=== PATIENT | female | born 1990 | race Caucasian/White ===

== ENCOUNTER → 2020-03-22 08:18 | Outpatient (BNVA) | payer MEDICAID, SELFPAY | PROVIDERS: Visit Provider Physician Assistant ==

== ENCOUNTER → 2020-03-28 14:37 | Outpatient (BNVA) | payer MEDICAID, SELFPAY | PROVIDERS: Visit Provider Dietitian, Registered ==

== ENCOUNTER 2020-03-30 09:03 | Outpatient (REF) | payer MEDICAID, SELFPAY ==
[2020-03-30 09:55] LABS: MANUAL DIFF FLAG NO
[2020-03-30 10:02] LABS: Basophils Absolute Auto 0.1 X10*3/uL (0.0-0.2); Basophils Percent Auto 0.5 % (0-2); Eosinophils Absolute Auto 0.2 X10*3/uL (0.0-0.4); Eosinophils Percent Auto 1.6 % (0-4); Hematocrit 38.3 % (37-47); Hemoglobin 12.7 g/dl (12.0-16.0); Imm Gran Abs Auto 0.06 X10*3/uL (0.00-0.03); Imm Gran Pct Auto 0.5 % (0.0-0.4); Lymphocytes Percent Auto 24.5 % (20-40); Mean Corpuscular HGB Conc 33.2 g/dl (31.0-35.0); Mean Corpuscular Hemoglobin 30.5 pg (27.0-33.0); Mean Corpuscular Volume 92.1 fL (80-98); Mean Platelet Volume 10.9 fL (9.4-12.3); Monocytes Absolute Auto 0.7 X10*3/uL (0.1-1.2); Neutrophils Absolute Auto 8.1 X10*3/uL (2.0-8.3); Neutrophils Percent Auto 66.9 % (45-73); Platelet Count 275 X10*3/uL (160-400); Red Blood Count 4.16 X10*6/uL (4.20-5.50); Red Cell Distribution Width 12.9 % (11.0-16.0); White Blood Count 12.2 X10*3/uL (4.8-10.8)
[2020-03-30 10:32] LABS: Estimated Average Glucose 94 mg/dL; Hemoglobin A1C 141.2281 umol/L; Hemoglobin A1c % 4.9 %
[2020-03-30 10:41] LABS: Alanine Aminotransferase 17 U/L (0-31); Albumin Level 3.9 g/dL (3.5-5.0); Alkaline Phosphatase 47 U/L (39-117); Anion Gap 12 (12-20); Aspartate Amino Transferase 16 U/L (5-31); Bilirubin Total 1.2 mg/dL (0.0-1.0); Blood Urea Nitrogen 7 mg/dL (9-16); C Reactive Protein 0.92 mg/dL (< or = 0.50); Calcium 9.1 mg/dL (8.4-10.2); Carbon Dioxide 26 mmol/L (22-29); Chloride 104 mmol/L (96-108); Cholesterol 188 mg/dL; Estimated Glomerular Filt Rate > 60; Glucose Fasting 85 mg/dL (60-99); HDL Cholesterol 60 mg/dL; Iron 153 mcg/dL (30-160); LDL Cholesterol Calculated 103 mg/dl; Percent Iron Saturation 48 % (15-50); Potassium 4.4 mmol/l (3.3-5.1); Sodium 138 mmol/L (135-145); Total Iron Binding Capacity 319 mcg/dL (228-428); Total Protein 6.6 g/dL (6.5-8.0); Triglycerides 125 mg/dL; Unsaturated Iron Binding 166 ug/dL
[2020-03-30 11:00] LABS: Folate 19.4 ng/mL (> or = 4.0); Vitamin B12 848 pg/mL (200-900)
[2020-03-30 11:02] LABS: Ferritin 109 ng/mL (10-122); Vitamin D 25-OH Total 47.3 ng/mL (>30)
[2020-03-31 06:12] LABS: Insulin Level Total 3.7 uIU/mL
[2020-03-31 15:42] LABS: Calcium (PTHI) 9.1 mg/dL (8.6-10.2); PTHI 13 pg/mL (14-64)
[2020-04-03 00:27] LABS: Zinc 75 mcg/dL (60-130)
[2020-04-04 12:27] LABS: Vitamin B1 15 nmol/L (8-30)
[2020-04-06 09:57] LABS: Vitamin A 47 mcg/dL (38-98)
== END 2020-03-30 09:04 | disposition home or self-care (01) ==
LOC: HO.LAB 09:03
PROVIDERS: Visit Provider Physician Assistant
DX: O99.840 Bariatric surgery status complicating pregnancy, unspecified trimester (principal); O99.210 Obesity complicating pregnancy, unspecified trimester; E66.01 Morbid (severe) obesity due to excess calories; O26.899 Other specified pregnancy related conditions, unspecified trimester; K91.2 Postsurgical malabsorption, not elsewhere classified; Z90.3 Acquired absence of stomach [part of]; Z3A.00 Weeks of gestation of pregnancy not specified
CPT/HCPCS: 36415; 80053; 80061; 82306; 82607; 82728; 82746; 83036; 83525; 83540; 83970; 84425; 84443; 84590; 84630; 85025; 86140

== ENCOUNTER → 2020-05-02 08:11 | Outpatient (BNVA) | payer MEDICAID, SELFPAY | PROVIDERS: Visit Provider Dietitian, Registered ==

== ENCOUNTER → 2020-05-22 10:09 | Outpatient (BNVA) | payer MEDICAID, SELFPAY | PROVIDERS: Visit Provider Surgery | DX: E66.3 Overweight (principal); Z98.84 Bariatric surgery status; Z3A.14 14 weeks gestation of pregnancy | CPT/HCPCS: 99212 ==

== ENCOUNTER → 2020-06-27 08:12 | Outpatient (BNVA) | payer MEDICAID, SELFPAY | PROVIDERS: Visit Provider Dietitian, Registered ==

== ENCOUNTER → 2020-07-26 08:15 | Outpatient (BNVA) | payer MEDICAID, SELFPAY | PROVIDERS: Visit Provider Dietitian, Registered | DX: Z98.84 Bariatric surgery status (principal) | CPT/HCPCS: 97803 ==

== ENCOUNTER 2024-08-30 11:39 | Outpatient (AMB) | payer MEDICAID, SELFPAY ==
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
[2024-08-30 11:50] VITALS: BMI 32.9
--- OUTSIDE RECORDS SUMMARY | 2024-08-30 12:31 | XMS_ITS | Clinical Summary ---
Author Organization [email or web address] Address [address] [place] [address] Care Team Providers Care Transportation Mechanic Name Role Phone Unavailable Primary Care Provider Unavailabl e Allergies Active Allergy Reactions Criticality Noted Date Comments Dust Mite Extract Cough,Dermatitis,Hiv e s,Itching,Rash,Shortn ess of breath High 07/06/2024 Fish-Derived Products Anaphylaxis,Dermat iti s,Diarrhea,Hives,Itch ing,Shortness of breath,Swelling High 09/12/2022 Other Reaction(s): Throat Tightness Nsaids 07/06/2024 [place] Oil Hives,Shortness of breath,Swelling High 09/12/2022 Other Reaction(s): Throat Tightness Raspberry Hives,Shortness of breath High 09/12/2022 Medications Ventolin HFA 108 (90 Base) MCG/ACT inhaler INHALE ONE TO TWO PUFFS BY MOUTH EVERY 4 TO 6 HOURS NEEDED Active doxycycline (Vibra-Tabs) 100 MG tablet 4 Active Ferrous Sulfate (IRON PO) 8 Active oxyCODONE (Roxicodone) 5 MG immediate release tablet 4 Active Sertraline HCl 150 MG capsule Take 150 mg by mouth. 5 Active traMADol (Ultram) 50 MG tablet TAKE 1 TABLET BY MOUTH EVERY 8 HOURS NEEDED FOR LOW BACK PAIN. DO NOT FILL UNTIL 07/15/2024 5 Active venlafaxine XR (Effexor XR) 75 MG 24 hr capsule Take 75 mg by mouth Once per day. Active ARIPiprazole (Abilify) 10 MG tablet 5 Active hydrOXYzine HCl (Atarax) 50 MG tablet 5 Active traZODone (Desyrel) 50 MG tablet Take 50 mg by mouth at bedtime. Active cloNIDine (Catapres) 0.1 MG tablet Take 0.1 mg by mouth 2 times daily. Active naratriptan (Amerge) 2.5 MG tablet PLEASE SEE ATTACHED FOR DETAILED DIRECTIONS Active amoxicillin-cla vulanate (Augmentin) 875-125 MG tabletIndicatio ns:Dental caries Take 1 tablet by mouth 2 times daily for 10 days. 20 tablet 5 09/04/19 25 Active acetaminophen-c odeine (Tylenol w/ Codeine #3) 300-30 MG tabletIndicatio ns:Dental caries Take 1 tablet by mouth every 6 (six) hours if needed for severe pain for up to 5 days. 20 tablet 5 08/30/19 25 Active Problems Problem Noted Date Diagnosed Date Abnormal cervical Papanicolaou smear 07/06/2024 Overview (07/06/2024): 2019 nilm lgsil pap 2011 ADD (attention deficit disorder) 07/06/2024 Anxiety 07/06/2024 Asthma 07/06/2024 Overview (07/06/2024): prn albuterol, stable. improved in adulthood, allergy induced. Chronic dental pain 07/06/2024 PTSD (post-traumatic stress disorder) 07/06/2024 CTE (chronic traumatic encephalopathy) Depressive disorder 07/06/2024 Overview (07/06/2024): no medications, feeling well. therapy and meds not helpful per pt. Lower back pain 07/06/2024 Migraines 07/06/2024 Overview (07/06/2024): intermittent, tylenol and rest. not frequent enough for daily med management. CRISTIANE (generalized anxiety disorder) 04/28/2024 Depression 04/28/2024 Intestinal malabsorption following gastrectomy 0 10/25/2022 Overweight with body mass in dex (BMI) of 28 to 28.9 in adult 10/25/2022 Smoker 10/25/2022 Status post sleeve gastrectomy 10/25/2022 Complex posttraumatic stress disorder 01/31/2014 Resolved Problems Problem Noted Date Diagnosed Date Resolved Date Anemia 09/15/2023 09/15/2023 Encounters Date Type Department Care Team Description 08/24/2024 11:00 AM EDT Office Visit [facility]ENT D[facility]AL [address] [place] [address] Jesica Palafox, LLTrinh Dental caries (Primary Dx) 08/23/2024 9:00 AM EDT Community Care Management [facility] OM CHW [phone] Tori Brewer 08/10/2024 2:30 PM EDT Office Visit [facility] GR DENTAL [address] [place] [address] Kathryn Tabares LLD 08/09/2024 Travel 08/05/2024 Telephone [facility] GR DENTAL [address] [place] [phone] Kathryn Tabares LLD 06/29/2024 Travel 06/02/2024 10:00 AM EDT Office Visit [facility] OD DENTAL [address] [facility] [phone] Broderick Yen 06/01/2024 Travel from Last 3 Months Family History Medical History Relation Name Comments Asthma Daughter Otf Intellectual Disability Daughter Otf Learning disabilities Daughter Otf Heart disease Father Clarence Hypertension Father Clarence Diabetes Maternal Grandfather Jed Heart disease Maternal Grandfather Jed Depression Maternal Grandmother Katharina Diabetes Maternal Grandmother Katharina Kidney disease Maternal Grandmother Katharina Mental illness Maternal Grandmother Katharina Arthritis Mother Peggy Asthma Mother Peggy Cancer Mother Peggy Miscarriages / Stillbirths Mother Peggy Early natural Mother's Brother Ramiro Intellectual Disability Mother's Brother Ramiro Learning disabilities Mother's Brother Ramiro Hearing loss Paternal Grandfather Gene Heart disease Paternal Grandmother Yasmin Stroke Paternal Grandmother Yasmni Vision loss Paternal Grandmother Yasmin Asthma Sister Melinda Asthma Son 1 Mitch defects Son 1 Mitch Intellectual Disability Son 1 Mitch Learning disabilities Son 1 Mitch Asthma Son 2 Boom Intellectual Disability Son 2 Boom Learning disabilities Son 2 Boom Relation Name Status Comments Daughter Otf Alive Father Clarence Alive Maternal Grandfather Jed Alive Maternal Grandmother Katharina Alive Mother Peggy Alive Mother's Brother Ramiro Alive Paternal Grandfather Rasheed Alive Paternal Grandmother Yasmin Alive Sister Melinda Alive Son 1 Mitch Alive Son 2 Boom Alive Social History Tobacco Use Types Packs/Day Years Used Date Smoking Tobacco: Every Day Cigarettes Smokeless Tobacco: Never Tobacco Cessation:Ready to Q uit: Not Asked; Counseling Given: Not Answered Alcohol Use Standard Drinks/Week Comments Never 0 (1 standard drink = 0.6 oz pur e alcohol) Comments Unknown Sex and Gender Information Value Date Recorded Sex Assigned at Female 09/15/2023 10:19 AM EDT Legal Sex Female 10:01 AM EDT Gender Identity Female 09/15/2023 10:19 AM EDT Sexual Orientation Choose not to disclose 2023 10:19 AM EDT Last Filed Vital Signs Vital Sign Reading Time Taken Comments Blood Pressure 120/89 08/24/2024 11:10 AM EDT Pulse 73 08/24/2024 11:10 AM EDT Temperature 36.8 C (98.3 F) 08/24/2024 11:10 AM EDT Respiratory Rate - - Oxygen Saturation - - Inhaled Oxygen Concentration - - Weight - - Height - - Body Mass Index - - Plan of Treatment Upcoming Encounters Date Type Department Care Team (Late st Contact Info) Description 09/13/2024 12:30 PM EDT Office Visit [facility] GR DENTAL [address] [place] [phone] Kathryn Tabares D [address] [place] [address] Health Maintenance Due Date Last Done Comments Dental Prophylaxis 1988 Depression Screening 1988 HIV Screening 1988 Lipid Panel 1988 SDOH Screening 1988 Disability Screening 1988 Alcohol/Substance Use Screening 2000 Family Planning (PISQ) 12/28/2003 Hepatitis C Screening 2006 Hepatitis B Vaccines (1 of 3 - 19+ 3-dose series) 12/28/2007 Pneumococcal Vaccine: Pediatrics (0 to 5 Years) and At-Risk Patients (6 to 49) Years (1 of 2 - PCV) 12/28/2007 Pap Smear 2009 Cervical Cancer Screening 2018 HPV/Cotest 2018 COVID-19 Vaccine ( season) 2023 04/24/2022, 03/07/2021, 03/07/2020 Dental Oral Exam 02/10/2025 08/10/2024 Dental X-Ray: Bitewings 06/03/2025 06/02/2024 Tobacco Screening 08/24/2025 08/24/2024 Dental X-Ray: Full Mouth 06/04/2027 06/02/2024, 0707/2023 DTaP/Tdap/Td Vaccines (2 - Td or Tdap) 08/09/2032 08/09/2022, 10/20/2012, 10/20/2012 Zoster Vaccines (1 of 2) 2038 RSV Patients and Patients Aged 60 years or older (1 - 1-dose 75+ series) 12/28/2063 Influenza Vaccine Completed 04/25/2024, , 01/27/2018, Additional history exists HIB Vaccines Aged Out No longer eligi ble based on patient's age to complete this topic HPV Vaccines Aged Out No longer eligi ble based on patient's age to complete this topic Hepatitis A Vaccines Aged Out No long er eligible based on patient's age to complete this topic IPV Vaccines Aged Out No longer eligi ble based on patient's age to complete this topic Meningococcal B Vaccine Aged Out No l onger eligible based on patient's age to complete this topic Meningococcal Vaccine Aged Out No emanuel madhuri eligible based on patient's age to complete this topic RSV under 20 months Aged Out No longe r eligible based on patient's age to complete this topic Rotavirus Vaccines Aged Out No longer eligible based on patient's age to complete this topic Procedures Procedure Name Priority Date/Time Associated Diagnosis Comments LIMITED ORAL EVALUATION - PROBLEM FOCUSED Routine 08/24/2024 11:00 AM EDT CASE PRESENTATION, DETAILED AND EXTENSIVE TREATMENT PLANNING Routine 08/24/2024 11:00 AM EDT COMPREHENSIVE ORAL EVALUATION - NEW OR ESTABLISHED PATIENT Routine 08/10/2024 2:30 PM EDT CASE PRESENTATION, DETAILED AND EXTENSIVE TREATMENT PLANNING Routine 08/10/2024 2:30 PM EDT INTRAORAL - COMPLETE SERIES OF RADIOGRAPHIC IMAGES Routine 06/02/2024 10:00 AM EDT ORAL HYGIENE INSTRUCTIONS Routine 2024 10:00 AM EDT from Last 3 Months Insurance [facility] MEDICAID STAND ADULT DENTAL - [facility] FULL (MEDICAID)
== END 2024-08-30 12:09 | disposition home or self-care (01) ==
LOC: HO.HBS 11:39
PROVIDERS: PCP Family Medicine; Visit Provider Physician Assistant Surgical
DX: E66.9 Obesity, unspecified (principal); Z68.32 Body mass index [BMI] 32.0-32.9, adult; Z90.3 Acquired absence of stomach [part of]; Z98.84 Bariatric surgery status
CPT/HCPCS: 98014

== ENCOUNTER 2024-09-14 08:13 | Outpatient (REF) | payer MEDICAID, SELFPAY ==
--- OUTSIDE RECORDS SUMMARY | 2024-09-14 08:19 | XMS_ITS | Encounter Summary ---
Author Organization [employer] Address [address] [place] [address] [address] [address] Care Team Providers Care Dispenser Operator Name Role Phone Unavailable Primary Care Provider Unavailabl e Reason for Visit * Reason Comments Med Refill Encounter Details Date Type Department Care Team (Late Contact Info) Description 10/07/2023 Refill [facility]RGENT DENTAL [address] [place] [phone] Jesica Palafox Trinh [address] [place] [phone] Social History Tobacco Use Types Packs/Day Years Used Date Smoking Tobacco: Every Day Cigarettes Smokeless Tobacco: Never Alcohol Use Standard Drinks/Week Comments Never 0 (1 standard drink = 0.6 oz pur e alcohol) Comments Unknown Sex and Gender Information Value Date Recorded Sex Assigned at Female 09/15/2023 10:19 AM EDT Legal Sex Female 10:01 AM EDT Gender Identity Female 09/15/2023 10:19 AM EDT Sexual Orientation Choose not to disclose 2023 10:19 AM EDT documented as of this encounter Plan of Treatment Upcoming Encounters Date Type Department Care Team (Late Contact Info) Description 10/25/2024 12:30 PM EDT Office Visit [facility]RGENT DENTAL [address] [place] [phone] Jesica Palafox [facility] [address] [place] [address] 10/25/2024 4:15 PM EDT Office Visit [facility] GR DENTAL [address] [place] [phone] Kathryn Tabares Trinh [address] [place] [phone] documented as of this encounter Visit Diagnoses Not on filedocumented in this encounter
[2024-09-14 08:42] LABS: MANUAL DIFF FLAG NO
[2024-09-14 09:14] LABS: Hematocrit 41.8 % (37.0-47.0); Hemoglobin 13.8 g/dl (12.0-16.0); Imm Gran Abs Auto 0.03 X10*3/uL (0.00-0.03); Imm Gran Pct Auto 0.3 % (0.0-0.4); Lymphocytes Absolute Auto 3.1 X10*3/uL (1.2-4.9); Mean Corpuscular HGB Conc 33.0 g/dl (31.0-35.0); Mean Corpuscular Hemoglobin 28.9 pg (27.0-33.0); Mean Corpuscular Volume 87.4 fL (80.0-98.0); NRBC Abs Auto 0.000 X10*3/uL (0.0-0.012); NRBC Pct Auto 0.0 /100WBC (0.0-0.2); Platelet Count 293 X10*3/uL (160-400); Red Blood Count 4.78 X10*6/uL (4.20-5.50); White Blood Count 9.3 X10*3/uL (4.8-10.8)
[2024-09-14 09:15] LABS: Hemoglobin A1C 121.6894 umol/L; Total Hemoglobin (HGBA1C) 3747.2576 umol/L
[2024-09-14 09:49] LABS: Alanine Aminotransferase 20 U/L (0-31); Albumin Level 4.5 g/dL (3.5-5.0); Alkaline Phosphatase 61 U/L (39-117); Anion Gap 9 (12-20); Aspartate Amino Transferase 26 U/L (5-31); Blood Urea Nitrogen 17 mg/dL (9-16); Calcium 9.6 mg/dL (8.4-10.2); Carbon Dioxide 28 mmol/L (22-29); Chloride 108 mmol/L (96-108); Cholesterol 196 mg/dL (<200); Estimated Glomerular Filt Rate > 60; HDL Cholesterol 63 mg/dL (>40); Iron 63 mcg/dL (30-160); Percent Iron Saturation 20 % (15-50); Potassium 4.1 mmol/L (3.3-5.1); Sodium 141 mmol/L (135-145); Total Iron Binding Capacity 317 mcg/dL (228-428); Total Protein 8.0 g/dL (6.5-8.0); Triglycerides 86 mg/dL (<150); Unsaturated Iron Binding 254 ug/dL
[2024-09-14 10:10] LABS: Folate 11.6 ng/mL (> or = 4.0); Vitamin B12 1035 pg/mL (200-900)
[2024-09-14 10:11] LABS: Ferritin 28 ng/mL (10-122)
== END 2024-09-14 08:14 | disposition home or self-care (01) ==
LOC: HO.LAB 08:13
PROVIDERS: Visit Provider Physician Assistant Surgical
DX: Z98.84 Bariatric surgery status (principal)
CPT/HCPCS: 36415; 80053; 80061; 82306; 82607; 82728; 82746; 83036; 83525; 83540; 84425; 84443; 84590; 84630; 85025; 86140

== ENCOUNTER 2024-09-30 08:53 | Outpatient (AMB) | payer MEDICAID, SELFPAY ==
--- NOTE | 2024-09-30 08:56 | MHC.OFFVISWM ---
VS Expanded 09/30/24 09:04 BP 137/80 Blood Pressure Location Rt brachial Blood Pressure Position Sitting Pulse 79 Pulse Source Pulse Oximeter Temp 96.6 F L Temperature Source Temporal Artery Scan Pulse Oximetry 100 Oxygen Delivery Method Room Air Height 5 ft 2.5 in Weight 177 lb BMI 31.9 Body Fat % 39.4 Body Fat Mass 69.6 Fat Free Mass 107.2 Visceral Fat Rating 8.0 Body Water % 43.4 Body Water Mass 76.8 Muscle Mass/Score 101.6 Basal Metabolic Rate/Score 1,499 Intake Visit Reasons: OV po lsg 07/29/18 Allergies [place] And Derivatives (CITRUS) Allergy (Intermediate, Verified 09/30/24 09:00) RASH/THROAT SWELLING raspberry (RASPBERRY) Allergy (Intermediate, Verified 09/30/24 09:00) RASH TUNA FISH Allergy (Severe, Uncoded 05/22/20 11:43) ANAPHYLAXIS DAIRY PRODUCTS Allergy (Intermediate, Uncoded 05/22/20 11:43) GI DISTRESS citrus Allergy (Unknown, Uncoded 05/22/20 11:43) rash throat swelling dairy Allergy (Unknown, Uncoded 05/22/20 11:43) GI problems Medication List - Last Reconciled 09/30/24 by ARIA Rodrigues albuterol sulfate 90 mcg/actuation (ProAir HFA) 1 inh inhalation QID aripiprazole (Abilify) 5 mg PO DAILY clonidine HCl 0.1 mg PO BID famotidine 20 mg PO DAILY ferrous sulfate ER 140 mg PO DAILY hydroxyzine HCl 50 mg PO QID PRN lidocaine 5% 1 patch topical DAILY methylphenidate HCl ER (Concerta) 18 mg PO DAILY qznyrbkstuvb-tae-wchu-FA-vit K 45 mg iron- 800 mcg-120 mcg (Bariatric Multivitamins) 1 cap PO .daily in evening naratriptan take 1 tab at onset of headache; if no relief may repeat 1 tab after at least 4 hrs; max = 2 tabs/24 hrs PO nicotine 1 patch transdermal DAILY sertraline 150 mg PO DAILY thiamine HCl (vitamin B1) 100 mg PO DAILY tirzepatide (Mounjaro) 2.5 mg (0.5 mL) subcut QWEEK tramadol 50 mg PO TID PRN trazodone 50 mg PO DAILY triamcinolone acetonide 0.1% 1 appl topical DAILY venlafaxine ER 75 mg PO DAILY HPI Comments Details: This?is a?33?yo F who is s/p LSG 07/29/2018. Presents for 6 year 2mo post op visit. Weight oss of 6lb since last OV No complaints of nausea, emesis, abdominal pain or reflux, or constipation. Attempted to retrieve previous imaging for pt but no RUQ US found, only CT pelvis from [facility] which does not comment on her liver. Present meal plan includes: following a plan from [employer] deon, trying to prioritize protein and veg Exercise routine includes: going to gym, low impact exercises- recumbent bike, rowing machine, resistance bands PFSH Medical History (Updated 09/30/24 @ 09:01 by Bobbi Manley CMA) Delivery with history of Asthma History of miscarriage History of ectopic Ectopic Anxiety Depression PTSD (post-traumatic stress disorder) Intestinal malabsorption following gastrectomy Surgical History Status post breast reduction S/P laparoscopic sleeve gastrectomy Family History Father HTN (hypertension) Heart murmur Mother Pre-diabetes Ovarian cancer HTN (hypertension) Sister Hypothyroidism Daughter Dania's thyroiditis Asthma Social History (Updated 09/30/24 @ 09:01 by Bobbi Manley CMA) Alcohol intake: never Patient Tobacco Use Status: Current someday Tobacco user Cigarettes Per Day: 3 Physical Exam Vital Signs: Last Vital Signs Temp 96.6 F L 09/30/24 09:04 Pulse 79 09/30/24 09:04 BP 137/80 09/30/24 09:04 Pulse Ox 100 09/30/24 09:04 Oxygen Delivery Method Room Air 09/30/24 09:04 BMI result Body Mass Index 31.9 Assessment & Plan Assessment & Plan (1) S/P laparoscopic sleeve gastrectomy: Code(s): Z98.84 - Bariatric surgery status Category: Surgical (2) Obesity: Code(s): E66.9 - Obesity, unspecified Category: Medical Plan Pt is interested in starting GLP1. Reviewed contraindications, discussed dosing. Discussed need for adequate protein intake while on GLP1s as well as frequent communication with our office. Pt will check in with me weekly and is aware that subsequent Rx will be dependent on frequent communication. Labs reviewed, vit B1 supplement sent, MVI rx per pt request. RTC 3mo. Medications: New thiamine HCl (vitamin B1) 100 mg PO DAILY 90 tabs 3RF tirzepatide (Mounjaro) for 4 weeks 2.5 mg (0.5 mL) subcut QWEEK 2 mL 0RF advvxewkiiwt-bwc-zemn-FA-vit K 45 mg iron- 800 mcg-120 mcg (Bariatric Multivitamins) 1 cap PO .daily in evening 90 caps 3RF
[2024-09-30 09:04] VITALS: BP 137/80; PULSE 79; TEMP 35.9; O2SAT 100; BMI 31.9
--- OUTSIDE RECORDS SUMMARY | 2024-09-30 09:13 | XMS_ITS | Encounter Summary ---
Author Organization [facility] Address [address] [facility] [address] [place] [phone] Phone Care Team Providers Care Square Shear Operator Name Role Phone Carlie Parks Primary Care Provider [phone] Anjelica Faustin LCSW Unavailable jesse Reason for Visit * Reason Onset Date Comments Care Coordination 09/13/2024 [facility] Care Plan Update 09/13/2024 Encounter Details Date Type Department Care Team (Late st Contact Info) Description 09/13/2024 Patient Outreach [facility] [address] [place] [address] Anjelica Faustin LCSW [address] [place] [address] [email or web address] Care Coordination; [facility] Care Plan Update Social History Tobacco Use Types Packs/Day Years Used Date Smoking Tobacco: Former Cigarettes 0.5 20.6 S tarted: 03/2004 Passive Smoke Exposure: Past Smokeless Tobacco: Never Comments:Smoking hx from 03/04, quit in 03/2023. No hx of smokeless products use. Alcohol Use Standard Drinks/Week Comments Never 0 (1 standard drink = 0.6 oz pur e alcohol) No hx of acohol use. Education Answer Date Recorded Are you interested in more education? Not on marquez e 06/29/2022 Are you concerned about learning? Not on file 06/29/2022 No 06/29/2022 No 06/29/2022 Digital Access Answer Date Recorded No 07/28/2022 No 07/28/2022 Reliable internet access at home? Not on file 07/28/2022 Device with a working camera? Not on file Education Answer Date Recorded What is the highest level of school you have completed or the highest degree you have received? Some college, no degree 04/14/2024 Comments Unknown Sex and Gender Information Value Date Recorded Sex Assigned at Not on file Legal Sex Female 10:44 AM EST Gender Identity Not on file Sexual Orientation Not on file Occupation Industry Job Start Date Job End Date unemployed Not on file Not on file Not on file documented as of this encounter Miscellaneous Notes * Plan of Care - Anjelica Faustin LCSW - 09/13/2024 4:24 PM EDT [facility] SW [facility]GR[facility] INTERVENTIONS: Phone call to Pt to review needs and goals. Left vm. NEXT PLANNED CONTACT: Send Unable to reach letter in two weeks. Contact Method:Mail Outreach Anjelica Faustin LCSW [facility] Social Work Hospital Laboratory Technician documented in this encounter Plan of Treatment Upcoming Encounters Date Type Department Care Team (Late st Contact Info) Description 10/05/2024 1:00 PM EDT Office Visit [facility] General Surgical Care [address] [place] [phone] Margoth Pearson MD [address] [facility], [address] [place] [phone] [email or web address] documented as of this encounter Visit Diagnoses Not on filedocumented in this encounter Care Teams Square Shear Operator Relationship Specialty Start Date End Date Carlie Parks PA [address] [place] [phone] PCP - General Physician Outdoor Education Teacher 04/16/22 Anjelica Faustin LCSW [address] [place] [address] [facility] Social Work 03/16/24 documented as of this encounter Additional Source Comments The information contained in this document represents components of the legal health record. It is not the complete legal health record.[facility]
--- OUTSIDE RECORDS SUMMARY | 2024-09-30 09:13 | XMS_ITS | Encounter Summary ---
Author Organization [employer] Address [address] [place] [address] [place], [place] [address] Care Team Providers Care Platen Press Operator Apprentice Name Role Phone Unavailable Primary Care Provider Unavailabl e Reason for Visit * Reason Comments Med Refill Encounter Details Date Type Department Care Team (Late Contact Info) Description 10/07/2023 Refill [facility] URGENT DENTAL [address] [place] [phone] Jesica Palafox Trinh [address] [place] [phone] Social History Tobacco Use Types Packs/Day Years [...] Description 10/25/2024 12:30 PM EDT Office Visit [facility]RGENT DENTAL [address] [place] [phone] Jesica Palafox [facility] [address] [place] [address] 10/25/2024 4:15 PM EDT Office Visit [facility] GR DENTAL [address] [place] [phone] Kathryn Tabares Trinh [address] [place] [phone] documented as of this encounter Visit Diagnoses Not on filedocumented in this encounter
== END 2024-09-30 09:39 | disposition home or self-care (01) ==
LOC: HO.HBS 08:54
PROVIDERS: PCP Family Medicine; Visit Provider Physician Assistant Surgical
DX: E66.9 Obesity, unspecified (principal); Z68.31 Body mass index [BMI] 31.0-31.9, adult; Z90.3 Acquired absence of stomach [part of]; Z98.84 Bariatric surgery status
CPT/HCPCS: 99214; G2211

== ENCOUNTER → 2024-09-30 08:53 | Outpatient (BNVA) | payer MEDICAID, SELFPAY | PROVIDERS: PCP Family Medicine; Visit Provider Physician Assistant Surgical | DX: E66.9 Obesity, unspecified (principal); K90.49 Malabsorption due to intolerance, not elsewhere classified; Z68.31 Body mass index [BMI] 31.0-31.9, adult; Z90.3 Acquired absence of stomach [part of] | CPT/HCPCS: 99212 ==

== ENCOUNTER 2024-12-27 09:58 | Outpatient (AMB) | payer MEDICAID, SELFPAY ==
--- NOTE | 2024-12-27 09:47 | A.OFFVIS_ITS ---
VS Expanded 12/27/24 09:48 Height 5 ft 2.5 in Weight 150 lb 3 oz BMI 27.0 Intake Visit Reasons: TV PO LSG 07/29/18 Allergies [place] And Derivatives (CITRUS) Allergy (Intermediate, Verified 10/12/24 15:19) RASH/THROAT SWELLING raspberry (RASPBERRY) Allergy (Intermediate, Verified 10/12/24 15:19) RASH TUNA FISH Allergy (Severe, Uncoded 05/22/20 11:43) ANAPHYLAXIS DAIRY PRODUCTS Allergy (Intermediate, Uncoded 05/22/20 11:43) GI DISTRESS citrus Allergy (Unknown, Uncoded 05/22/20 11:43) rash throat swelling dairy Allergy (Unknown, Uncoded 05/22/20 11:43) GI problems Medication List - Last Reconciled 12/27/24 by ARIA Rodrigues albuterol sulfate 90 mcg/actuation (ProAir HFA) 1 inh inhalation QID aripiprazole (Abilify) 5 mg PO DAILY clonidine HCl 0.1 mg PO BID famotidine 20 mg PO DAILY ferrous sulfate ER 140 mg PO DAILY hydroxyzine HCl 50 mg PO QID PRN lidocaine 5% 1 patch topical DAILY methylphenidate HCl ER (Concerta) 18 mg PO DAILY wxitdstozpge-svy-vtvn-FA-vit K 45 mg iron- 800 mcg-120 mcg (Bariatric Multivitamins) 1 cap PO .daily in evening naratriptan take 1 tab at onset of headache; if no relief may repeat 1 tab after at least 4 hrs; max = 2 tabs/24 hrs PO nicotine 1 patch transdermal DAILY sertraline 150 mg PO DAILY thiamine HCl (vitamin B1) 100 mg PO DAILY tirzepatide (Mounjaro) 5 mg (0.5 mL) subcut QWEEK tramadol 50 mg PO TID PRN trazodone 50 mg PO DAILY triamcinolone acetonide 0.1% 1 appl topical DAILY venlafaxine ER 75 mg PO DAILY HPI Comments Details: This?is a?34?yo F who is s/p LSG 07/29/2018. Presents for 6 year 5 mo post op visit. Weight loss of 27lb since last OV. She continues on 5mg Mounjaro. No complaints of nausea, emesis, abdominal pain or reflux, or constipation. Present meal plan includes: following a plan from [employer] deon, trying to prioritize protein and veg had to have all teeth removed and still can't wear all her dentures- had that procedure end of October Exercise routine includes: going to gym, low impact exercises- recumbent bike, rowing machine, resistance bands -was limited in this for a time after her procedure [facility] Medical History (Updated 09/30/24 @ 09:01 by Bobbi Manley CMA) Delivery with history of Asthma History of miscarriage History of ectopic Ectopic Anxiety Depression PTSD (post-traumatic stress disorder) Intestinal malabsorption following gastrectomy Surgical History Status post breast reduction S/P laparoscopic sleeve gastrectomy Family History Father HTN (hypertension) Heart murmur Mother Pre-diabetes Ovarian cancer HTN (hypertension) Sister Hypothyroidism Daughter Dania's thyroiditis Asthma Social History (Updated 09/30/24 @ 09:01 by Bobbi Manley CMA) Alcohol intake: never Patient Tobacco Use Status: Current someday Tobacco user Cigarettes Per Day: 3 Telehealth Telehealth Telehealth Platform: Telephone Location of provider rendering services: practice address Location of patient: address on file Patient Identification confirmed using: Name, : Yes Telehealth method: voice only Patient verbally consented to treatment: Yes Patient verbally consented to billing insurance company: Yes Patient informed of any privacy concerns related to visit: Yes Minutes spent on Phone/Video with Pt.: 15 Assessment & Plan Assessment & Plan (1) Overweight: Code(s): E66.3 - Overweight Category: Medical (2) S/P laparoscopic sleeve gastrectomy: Code(s): Z98.84 - Bariatric surgery status Category: Surgical Plan Pt doing well on Mounjaro. She is no longer obese. She is trying to navigate choosing nutrition after having all teeth removed. She has been consistent with weight loss and trying to use deon with her limitations. Labs were done in August. She will continue to text me when she needs refills of Mounjaro. RTC 6mo TV.
[2024-12-27 09:48] VITALS: BMI 27.0
--- OUTSIDE RECORDS SUMMARY | 2024-12-27 11:38 | XMS_ITS | Encounter Summary ---
Author Organization [employer] Address [address] [place] [address] [address] [place] [address] Care Team Providers Care Web Publisher Name Role Phone Unavailable Primary Care Provider Unavailabl e Reason for Visit * Reason Comments Med Refill Encounter Details Date Type Department Care Team (Late Contact Info) Description 10/07/2023 Refill [facility] [address] [place] [phone] Jesica Palafox [facility] [address] [place] [address] Social History Tobacco Use Types Packs/Day Years [...] Care Team (Late st Contact Info) Description 01/10/2025 12:30 PM EST Office Visit [facility] [address] [place] [phone] Kathryn Tabares [facility] [address] [place] [address] documented as of this encounter Visit Diagnoses Not on filedocumented in this encounter
--- OUTSIDE RECORDS SUMMARY | 2024-12-27 11:38 | XMS_ITS | Encounter Summary ---
Author Organization [facility]erged With [facility] Address [address] [facility] [address] [place] [phone] Phone Care Team Providers Care Vba Developer Name Role Phone Carlie Parks Primary Care Provider Anjelica Faustin [employer] Unavailable ndelabar Anjelica Faustin [employer] Unavailable ndelabar Ofe Tse Unavailable Odilia Duncan RN Unavailable Gely Lord Unavailable guera Reason for Referral * Consultation (Elective) - Closed Specialty Diagnoses / Procedures Referred By Sheeba hernandez Referred To Contact Neurology Carlie Parks PA [address] [place] [address] Phone: tel: fax: [address] [address] Phone: tel: Referral ID Status Reason Start Date Expiration Date Visits Re quested Visits Authorized [id number] Closed 04/22/2022 04/22/2023 1 1 Encounter Details Date Type Department Care Team (Late st Contact Info) Description 04/22/2022 Transcribe Orders [facility] Neurology [address] [place] [phone] Rey Funez MD [address] [facility] [place] [address] Social History Tobacco Use Types Packs/Day Years Used Date Smoking Tobacco: Never Assessed Comments Unknown Sex and Gender Information Value Date Recorded Sex Assigned at Not on file Legal Sex Female 10:44 AM EST Gender Identity Not on file Sexual Orientation Not on file documented as of this encounter Plan of Treatment Scheduled Referrals Name Type Priority Associated Diagnoses Order Schedule Ambulatory referral to [facility] Neurology Outpatient Referral Routine Ordered: 04/22/2022 documented as of this encounter Visit Diagnoses Not on filedocumented in this encounter Care Teams Vba Developer Relationship Specialty Start Date End Date Carlie Parks PA [address] [place] [phone] PCP - General Physician Operations Research Engineer 04/16/22 Anjelica Faustin LCSW [address] [place] [address] PHCM Information Technology Associate 06/17/23 07/14/23 Anjelica Faustin LCSW [address] [place] [phone] PHCM Information Technology Associate 03/16/24 Ofe Tse [address] [place] [phone] Registered Nurse 04/20/24 06/14/24 Odilia Duncan RN [address] [place] [phone] PHCM Preschool Education Director 04/23/24 07/04/24 Gely Lord [address] [place] [phone] [email or web address] [facility] Entree Cook And Cashier 05/24/24 05/24/24 documented as of this encounter Additional Source Comments The information contained in this document represents components of the legal health record. It is not the complete legal health record.[facility]erg[facility] With [facility]
--- OUTSIDE RECORDS SUMMARY | 2024-12-27 11:38 | XMS_ITS ---
Author Organization [facility] Address [address] [place] [phone] Phone Care Team Providers Care Oil Spraying Machine Operator Name Role Phone Carlie Parks Primary Care Provider [phone] Anjelica Faustin LCSW Unavailable [email or web address] Population Health Care Management (PHCM) Status:Enrolled (Active) Start date:03/16/2024 Enrollment date:03/16/2024 Current support & services provided:[facility] Related social drivers of health:Housing Stability, Child or Family Care, Education, Food, Unemployment, Paying for Meds, Paying Utility Bills, Transportation, Digital Access, SNAP/WIC Case Team Name Relationship Phone Email Anjelica Faustin LCSW Cement Rubber(Res ponsible Staff) Trina Meneses PHCM Tie Cutter [email or web address] Nurse Pattern Worker RN Registered Nurse [phone] Continued Care and Services Coordination
--- OUTSIDE RECORDS SUMMARY | 2024-12-27 11:38 | XMS_ITS | Clinical Summary ---
Author Organization [employer] Address [address] [place] [address] Care Team Providers Care Laundry Press Operator Name Role Phone Unavailable Primary Care Provider Unavailabl e Allergies Active Allergy Reactions Criticality Noted Date Comments Doxycycline Rash High 09/13/2024 Dust Mite Extract Cough,Dermatitis,Hiv es,Itching,Rash,Shor tness of breath High 07/06/2024 Fish Protein-Containing Drug Products Anaphylaxis,Dermatit is,Diarrhea,Hives,It velma,Shortness of breath,Swelling High 09/12/2022 Other Reaction(s): Throat Tightness Nsaids 07/06/2024 Dundy Oil Hives,Shortness of breath,Swelling High 09/12/2022 Other [...] Active hydrOXYzine HCl (Atarax) 50 MG tablet Active traZODone (Desyrel) 50 MG tablet Take 50 mg by mouth at bedtime. Active cloNIDine (Catapres) 0.1 MG tablet Take 0.1 mg by mouth 2 times daily. Active naratriptan (Amerge) 2.5 MG tablet PLEASE SEE ATTACHED FOR DETAILED DIRECTIONS Active Active Problems Problem Noted Date Diagnosed Date Class 1 obesity 11/11/2024 Abnormal cervical Papanicolaou smear 07/06/2024 Overview (07/06/2024): [...] Encounters Date Type Department Care Team Description 11/11/2024 4:15 PM EDT Office Visit [address] [phone] Kathryn Tabares LLD 11/10/2024 Travel 10/26/2024 10:30 AM EDT Office Visit [facility] [address] [place] [phone] Kathryn TabaresSISSY 10/25/2024 4:15 PM EDT Office Visit [facility] [address] [place] [phone] Kathryn TabaresSISSY 10/25/2024 12:30 PM EDT Office Visit [facility] [address] [place] [address] Jesica Palafox, Trinh Dental caries (Primary Dx) 10/24/2024 Travel from Last 3 Months Family History [...] disease Paternal Grandmother Yasmin Stroke Paternal Grandmother Yasmin Vision loss Paternal Grandmother Yasmin Asthma Sister [...] Alive Mother's Brother Ramiro Alive Paternal Grandfather Gene Alive Paternal Grandmother Yasmin Alive Sister Melinda [...] Sign Reading Time Taken Comments Blood Pressure 120/80 11/11/2024 4:14 PM EDT Pulse 89 11/11/2024 4:14 PM EDT Temperature 36.9 C (98.4 F) 10/26/2024 10:33 AM EDT Respiratory Rate - - Oxygen Saturation - - Inhaled Oxygen Concentration - - Weight - - Height - - Body Mass Index - - Plan of Treatment Upcoming Encounters Date Type Department Care Team (Late st Contact Info) Description 01/10/2025 12:30 PM EST [facility] [address] [place] [phone] Kathryn Tabares, LLD [address] [place] [address] Health Maintenance Due Date Last Done Comments Dental Prophylaxis 1988 Depression Screening 1988 HIV Screening 1988 Lipid Panel 1988 SDOH Screening 1988 Disability Screening 1988 Alcohol/Substance Use Screening 2000 Family Planning (PISQ) 12/28/2003 HPV Vaccines (1 - 3-dose series) 12/28/2003 Hepatitis C Screening 2006 Hepatitis B Vaccines (1 of 3 - 19+ 3-dose series) 12/28/2007 Pneumococcal Vaccine: Pediatrics (0 to 5 Years) and At-Risk Patients (6 to 49) Years (1 of 2 - PCV) 12/28/2007 Pap Smear 2009 Cervical Cancer Screening 2018 HPV/Cotest 2018 COVID-19 Vaccine ( season) 2024 04/24/2022, 03/07/2021, 03/07/2020 Dental Oral Exam 02/10/2025 08/10/2024 Dental X-Ray: Bitewings 06/03/2025 06/02/2024 Tobacco Screening 10/25/2025 10/25/2024 Dental X-Ray: Full Mouth 06/04/2027 06/02/2024, 08/31 DTaP/Tdap/Td Vaccines (2 - Td or Tdap) 08/09/2032 08/09/2022, 10/20/2012, 10/20/2012 Zoster Vaccines (1 of 2) 2038 RSV Patients and Patients Aged 60 years or older (1 - 1-dose 75+ series) 12/28/2063 Influenza Vaccine Completed 11/05/2024, , 04/25/2024, Additional history exists HIB Vaccines Aged Out [...] Procedure Name Priority Date/Time Associated Diagnosis Comments CASE PRESENTATION, DETAILED AND EXTENSIVE TREATMENT PLANNING Routine 11/11/2024 4:15 PM EDT DENTURE ADJUSTMENT Routine 11/11/2024 4: 15 PM EDT RE-EVAL - POST-OP OFFICE VISIT Routine 10/26/2024 10:30 AM EDT CASE PRESENTATION, DETAILED AND EXTENSIVE TREATMENT PLANNING Routine 10/25/2024 4:15 PM EDT Max INTERIM COMPLETE DENTURE (MAXILLARY) Routine 10/25/2024 4:15 PM EDT Nati INTERIM COMPLETE DENTURE (MANDIBULAR) Routine 10/25/2024 4:15 PM EDT CASE PRESENTATION, DETAILED AND EXTENSIVE TREATMENT PLANNING Routine 10/25/2024 12:30 PM EDT 32 EXTRACTION, ERUPTED TOOTH REQ REMOVAL OF BONE AND/OR SECTIONING OF TOOTH Routine 10/25/2024 12:30 PM EDT 31 EXTRACTION, ERUPTED TOOTH REQ REMOVAL OF BONE AND/OR SECTIONING OF TOOTH Routine 10/25/2024 12:30 PM EDT 30 EXTRACTION, ERUPTED TOOTH REQ REMOVAL OF BONE AND/OR SECTIONING OF TOOTH Routine 10/25/2024 12:30 PM EDT 29 EXTRACTION, ERUPTED TOOTH REQ REMOVAL OF BONE AND/OR SECTIONING OF TOOTH Routine 10/25/2024 12:30 PM EDT 28 EXTRACTION, ERUPTED TOOTH REQ REMOVAL OF BONE AND/OR SECTIONING OF TOOTH Routine 10/25/2024 12:30 PM EDT 27 EXTRACTION, ERUPTED TOOTH REQ REMOVAL OF BONE AND/OR SECTIONING OF TOOTH Routine 10/25/2024 12:30 PM EDT 26 EXTRACTION, ERUPTED TOOTH REQ REMOVAL OF BONE AND/OR SECTIONING OF TOOTH Routine 10/25/2024 12:30 PM EDT 25 EXTRACTION, ERUPTED TOOTH REQ REMOVAL OF BONE AND/OR SECTIONING OF TOOTH Routine 10/25/2024 12:30 PM EDT 24 EXTRACTION, ERUPTED TOOTH REQ REMOVAL OF BONE AND/OR SECTIONING OF TOOTH Routine 10/25/2024 12:30 PM EDT 23 EXTRACTION, ERUPTED TOOTH REQ REMOVAL OF BONE AND/OR SECTIONING OF TOOTH Routine 10/25/2024 12:30 PM EDT 22 EXTRACTION, ERUPTED TOOTH REQ REMOVAL OF BONE AND/OR SECTIONING OF TOOTH Routine 10/25/2024 12:30 PM EDT 20 EXTRACTION, ERUPTED TOOTH REQ REMOVAL OF BONE AND/OR SECTIONING OF TOOTH Routine 10/25/2024 12:30 PM EDT 14 EXTRACTION, ERUPTED TOOTH REQ REMOVAL OF BONE AND/OR SECTIONING OF TOOTH Routine 10/25/2024 12:30 PM EDT 13 EXTRACTION, ERUPTED TOOTH REQ REMOVAL OF BONE AND/OR SECTIONING OF TOOTH Routine 10/25/2024 12:30 PM EDT 12 EXTRACTION, ERUPTED TOOTH REQ REMOVAL OF BONE AND/OR SECTIONING OF TOOTH Routine 10/25/2024 12:30 PM EDT 11 EXTRACTION, ERUPTED TOOTH REQ REMOVAL OF BONE AND/OR SECTIONING OF TOOTH Routine 10/25/2024 12:30 PM EDT 9 EXTRACTION, ERUPTED TOOTH REQ REMOVAL OF BONE AND/OR SECTIONING OF TOOTH Routine 10/25/2024 12:30 PM EDT 8 EXTRACTION, ERUPTED TOOTH REQ REMOVAL OF BONE AND/OR SECTIONING OF TOOTH Routine 10/25/2024 12:30 PM EDT 7 EXTRACTION, ERUPTED TOOTH REQ REMOVAL OF BONE AND/OR SECTIONING OF TOOTH Routine 10/25/2024 12:30 PM EDT 6 EXTRACTION, ERUPTED TOOTH REQ REMOVAL OF BONE AND/OR SECTIONING OF TOOTH Routine 10/25/2024 12:30 PM EDT 5 EXTRACTION, ERUPTED TOOTH REQ REMOVAL OF BONE AND/OR SECTIONING OF TOOTH Routine 10/25/2024 12:30 PM EDT 4 EXTRACTION, ERUPTED TOOTH REQ REMOVAL OF BONE AND/OR SECTIONING OF TOOTH Routine 10/25/2024 12:30 PM EDT 3 EXTRACTION, ERUPTED TOOTH REQ REMOVAL OF BONE AND/OR SECTIONING OF TOOTH Routine 10/25/2024 12:30 PM EDT COMPREHENSIVE ORAL EVALUATION - NEW OR ESTABLISHED PATIENT Routine 08/10/2024 2:30 PM EDT INTRAORAL - COMPLETE SERIES OF RADIOGRAPHIC IMAGES Routine 06/02/2024 10:00 AM EDT from Last 3 Months or Most Recently Relevant to Health Maintenance Insurance [facility] MEDICAID STAND ADULT DENTAL - [place] FULL (MED[place]) [place] [id number]
== END 2024-12-27 09:59 | disposition home or self-care (01) ==
LOC: HO.HBS 09:58
PROVIDERS: PCP Family Medicine; Visit Provider Physician Assistant Surgical
DX: E66.3 Overweight (principal); Z98.84 Bariatric surgery status
CPT/HCPCS: 99214; G2211

== ENCOUNTER → 2024-12-27 09:58 | Outpatient (BNVA) | payer MEDICAID, SELFPAY | PROVIDERS: PCP Family Medicine; Visit Provider Physician Assistant Surgical | DX: Z98.84 Bariatric surgery status (principal); E66.3 Overweight | CPT/HCPCS: 99212 ==